=== PATIENT | male | born 1990 | race Caucasian/White ===

== ENCOUNTER 2016-11-27 13:48 | Emergency (ER) | payer SELFPAY ==
[2016-11-27] MEDS ORDERED: TRAMADOL HCL 50 MG TABLET PO ONE (15:09)
--- NOTE | 2016-11-27 15:13 | ER Document Report ---
ED Medical Screen (RME) - General Chief Complaint: Chest Pain Stated Complaint: CHEST PAIN Time Seen by Provider: 11/27/16 15:04 Mode of Arrival: Ambulatory Information source: Patient, ON LICENSE OF [facility] Records TRAVEL OUTSIDE OF THE [place] IN LAST 30 DAYS: No - HPI Onset: Other Onset/Duration: Gradual, Waxing and waning Severity: Mild Exacerbated by: Denies Relieved by: Denies Notes: 11/27/16 15:09 Patient is a healthy 26-year-old male who presents with a one-year history of intermittent left-sided chest pain. Patient has had no medical follow-up for this chest pain. Patient states today, the pain seemed worse. No PE risk factors. No fevers or chills. No recent trauma. Not short of breath. Patient has not taken any medication for his symptoms. - Related Data Allergies/Adverse Reactions: No Known Allergies Allergy (Verified 11/27/16 15:04) Past Medical History - General Information source: Patient, ON LICENSE OF [facility] Records - Social History Cigarette use (# per day): No Chew tobacco use (# tins/day): No Family history: None - Medical History Medical History: Negative Renal/ Medical History: Denies: Hx Peritoneal Dialysis Review of Systems - Review of Systems Cardiovascular: Chest pain -: Yes All other systems reviewed and negative Physical Exam - Vital signs Vitals: Temp Pulse Resp BP Pulse Ox 98.2 F 109 H 16 108/70 97 11/27/16 14:05 11/27/16 14:05 11/27/16 14:05 11/27/16 14:05 11/27/16 14:05 Interpretation: Normal - General General appearance: Appears well, Alert - HEENT Head: Normocephalic, Atraumatic Eyes: Normal Pupils: PERRL - Respiratory Respiratory status: No respiratory distress Chest status: Nontender. No: Pain on movement, Pain with cough Breath sounds: Normal Chest palpation: Normal - Cardiovascular Rhythm: Regular Heart sounds: Normal auscultation Murmur: No Normal capillary refill: Yes - Abdominal Inspection: Normal Distension: No distension Bowel sounds: Normal Tenderness: Nontender Organomegaly: No organomegaly - Back Back: Normal, Nontender - Extremities General upper extremity: Normal inspection, Nontender, Normal color, Normal ROM , Normal temperature General lower extremity: Normal inspection, Nontender, Normal color, Normal ROM , Normal temperature, Normal weight bearing. No: Brittany's sign - Neurological Neuro grossly intact: Yes Cognition: Normal Orientation: AAOx4 Drew Coma Scale Eye Opening: Spontaneous Drew Coma Scale Verbal: Oriented [place] Coma Scale Motor: Obeys Commands [place] Coma Scale Total: 15 Speech: Normal Motor strength normal: LUE, RUE, LLE, RLE Sensory: Normal - Psychological Associated symptoms: Normal affect, Normal mood - Skin Skin Temperature: Warm Skin Moisture: Dry Skin Color: Normal Course - Re-evaluation Re-evalutation: 11/27/16 15:11 Patient with a one-year history of intermittent chest pain symptoms. No primary care or cardiology follow-up. EKG is normal. Physical exam is unremarkable. Discussed need for primary care follow-up. Discussed return symptoms worsen problems. - Vital Signs Vital signs: Temp Pulse Resp BP Pulse Ox 98.2 F 109 H 16 108/70 97 11/27/16 14:05 11/27/16 14:05 11/27/16 14:05 11/27/16 14:05 11/27/16 14:05 - EKG Interpretation by Pr EKG shows normal: Sinus rhythm Rate: Tachycardia - 105 [place]/QRS: No: Right axis deviation, Left axis deviation Voltage: No: Increased voltage Additional EKG results interpreted by mo: 11/27/16 15:[address]-T wave changes. Doctor's Discharge - Discharge Clinical Impression: Chest pain Condition: Good Disposition: HOME, SELF-CARE Instructions: Chest Pain of Unclear Cause ([facility]) Additional Instructions: Follow-up with your primary care doctor and/or cardiology. Return to the emergency department if worse or for any other problems. Prescriptions: Tramadol HCl 50 mg PO QID PRN #20 tablet PRN Reason: Mild Pain
[2016-11-27 15:19] VITALS: BP 102/62
--- NOTE | 2016-11-27 19:10 | EKG REPORT ---
SEVERITY:- OTHERWISE NORMAL ECG - SINUS TACHYCARDIA : Confirmed by: Darryn Almazan MD 27-Nov-2016 19:09:46
== END 2016-11-27 15:22 | disposition home or self-care (01) ==
LOC: ER 13:48
DX: R07.9 Chest pain, unspecified (principal)
CPT/HCPCS: 93005; 93010; 99285

== ENCOUNTER 2017-01-24 19:47 | Emergency (ER) | payer SELFPAY ==
[2017-01-24] MEDS ORDERED: PROMETHAZINE HCL 25 MG TABLET PO ONE (20:30)
[2017-01-24] MEDS ORDERED: OXYCODONE-ACETAMINOPHEN 5-325 MG TABLET PO ONE (20:30)
[2017-01-24] MEDS ORDERED: LIDOCAINE 1% INJ-PF (10 MG/ML) 30 ML SDV INJ ONE (20:32)
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
[2017-01-24 22:12] VITALS: BP 123/64
== END 2017-01-24 22:12 | disposition home or self-care (01) ==
LOC: ER 19:47
PROC: 0HQFXZZ Repair Right Hand Skin, External Approach (ICD-10-PCS; principal; 2017-01-24)
DX: S61.411A Laceration without foreign body of right hand, initial encounter (principal); X99.1XXA Assault by knife, initial encounter; F17.200 Nicotine dependence, unspecified, uncomplicated
CPT/HCPCS: 99284

== ENCOUNTER 2017-05-19 14:46 | Emergency (ER) | payer SELFPAY ==
[2017-05-19] MEDS ORDERED: PROCHLORPERAZINE MALEATE 10 MG TABLET PO ONE (15:57)
[2017-05-19] MEDS ORDERED: DIPHENHYDRAMINE HCL 25 MG CAPSULE PO ONE (15:57)
[2017-05-19] MEDS ORDERED: TRAMADOL HCL 50 MG TABLET PO ONE (15:58)
--- NOTE | 2017-05-19 15:58 | ER Document Report ---
ED General - General Chief Complaint: Chest Pressure Stated Complaint: CHEST PAIN,HEADACHE Time Seen by Provider: 05/19/17 15:46 Mode of Arrival: Ambulatory Information source: Patient, Friend Notes: This 26-year-old male patient who probably suffers from untreated bipolar disorder, alcohol abuse and self-medication with alcohol. Comes emergency room complaining of several day history of headache, chest pain. He has had congested cough with some brown and black appearing sputum. He does smoke half pack a day and at this time which is much less than his baseline. He denies any EtOH since a democrat prior to , however he has an EtOH odor on his breath at this time. He reports pain in the chest when he takes deep breath and coughs. He also reports vomiting blood for the past 2 weeks. He states he has never been to [facility] [address], however review of records I think I saw where he had been referred there. The patient's girlfriend is present, she is . She is concerned about him having untreated bipolar disorder and would like him on medication. She also reports that he drinks regularly despite what he reported. She is concerned that bipolar disorder could be inherited by the child she is caring at this time. TRAVEL OUTSIDE OF THE [place] IN LAST 30 DAYS: No - Related Data Allergies/Adverse Reactions: No Known Allergies Allergy (Verified 05/19/17 14:47) Home Medications: Current Home Medications No Home Medications 05/19/17 [History] Past Medical History - General Information source: Patient, Friend - Social History Smoking Status: Current Every Day Smoker Cigarette use (# per day): Yes - 1 PPD Chew tobacco use (# tins/day): No Smoking Education Provided: No Frequency of alcohol use: Heavy Drug Abuse: None Lives with: Spouse/Significant other Family History: Reviewed & Not Pertinent Patient has suicidal ideation: No Patient has homicidal ideation: No - Past Medical History Cardiac Medical History: Reports: None EENT Medical History: Reports: None Neurological Medical History: Reports: None Endocrine Medical History: Reports: None Renal/ Medical History: Reports: None GI Medical History: Reports: None Skin Medical History: Reports None Psychiatric Medical History: Reports: Hx Anxiety Traumatic Medical History: Reports: None Infectious Medical History: Reports: None Past Surgical History: Reports: None - Immunizations Hx Diphtheria, Pertussis, Tetanus Vaccination: - UNKNOWN Review of Systems - Review of Systems Constitutional: No symptoms reported EENT: No symptoms reported Cardiovascular: See HPI, Chest pain Respiratory: Cough, Hurts to breathe, Hemoptysis, Sputum Gastrointestinal: Nausea Genitourinary: No symptoms reported Musculoskeletal: No symptoms reported Skin: No symptoms reported Hematologic/Lymphatic: No symptoms reported Neurological/Psychological: No symptoms reported Physical Exam - Vital signs Vitals: Temp Pulse Resp BP Pulse Ox 98.8 F 117 H 18 111/84 96 05/19/17 15:18 05/19/17 15:18 05/19/17 15:18 05/19/17 15:18 05/19/17 15:18 Interpretation: Tachycardic - General General appearance: Alert, Anxious In distress: None - HEENT Head: Normocephalic, Atraumatic Eyes: Normal Pupils: PERRL Neck: Normal - Respiratory Respiratory status: No respiratory distress Breath sounds: Productive cough, Rhonchi Chest palpation: Tender - Very tender to palpate the posterior thoracic muscles and ribs going around bilaterally. - Cardiovascular Rhythm: Regular, Tachycardia Heart sounds: Normal auscultation Murmur: No - Abdominal Inspection: Normal Distension: No distension Bowel sounds: Normal - Back Back: Tender - Extremities General upper extremity: Normal inspection General lower extremity: Normal inspection - Neurological Neuro grossly intact: Yes - Psychological Associated symptoms: Anxious, Depressed - Skin Skin Temperature: Warm Skin Moisture: Dry Skin Color: Normal Course - Re-evaluation Re-evalutation: 05/19/17 17:22 The patient was seen by psych to talk about medication management of his bipolar disorder. No history from the girlfriend is she has not been home in a couple days, she is afraid of him. He has become aggressive toward her. He changed his mind and at this time does not want any medication for his problems. His EtOH level came back at 261mg%. He is obviously a high functioning alcoholic. Given this latest information, and his girlfriend is concerned about her safety, IVC paperwork will be taken out and he will be served by [facility]. 05/19/17 18:26 The patient was placed on IVC paperwork and moved to the back to a private room. We will hoping to have [facility] serve the papers to avoid a dangerous confrontation with the patient. [facility] has never shown up with papers, they were called because the patient is becoming agitated. They responded that they will not be here for quite some time. Security is now standing by, he will be given IM Haldol and Ativan. He received Benadryl and Compazine earlier. - Vital Signs Vital signs: Temp Pulse Resp BP Pulse Ox 98.1 F 80 16 115/65 99 05/20/17 06:39 05/20/17 06:39 05/20/17 08:03 05/20/17 06:39 05/20/17 06:39 - Laboratory Result Diagrams: 05/19/17 16:19 05/19/17 16:19 Laboratory results interpreted by me: 05/19/17 05/19/17 05/20/17 16:19 16:19 07:30 WBC 13.9 H Hgb 17.5 H Hct 51.4 H Seg Neutrophils % 79.2 H Absolute Neutrophils 11.0 H Sodium 145.4 H Potassium 5.1 H Carbon Dioxide 18 L Anion Gap 22 H Calcium 10.6 H Alkaline Phosphatase 133 H Total Protein 8.4 H Albumin 5.3 H Urine Protein 30 H Urine Ketones 20 H Urine Urobilinogen 2.0 H - Diagnostic Test Radiology reviewed: Image reviewed, Reports reviewed - Chest x-ray is unremarkable - EKG Interpretation by Me EKG shows normal: Sinus rhythm, [place], Intervals, QRS Complexes, ST-T Waves Rate: Tachycardia - 105 Discharge - Discharge Clinical Impression: Chronic alcohol abuse, Bronchitis, Pain, chest wall Bipolar disorder Qualifiers: Active/Remission status: currently active Current bipolar episode type: depressed Current episode severity: moderate Qualified Code(s): F31.32 - Bipolar disorder, current episode depressed, moderate Acute alcohol intoxication Qualifiers: Complication of substance-induced condition: uncomplicated Qualified Code(s): F10.929 - Alcohol use, unspecified with intoxication, unspecified Headache Qualifiers: Headache type: unspecified Headache chronicity pattern: unspecified pattern Intractability: not intractable Qualified Code(s): R51 - Headache Condition: Stable Disposition: PSYCH HOSP/UNIT
[2017-05-19 16:31] LABS: ABSOLUTE BASOPHILS # (AUTO) 0.2 10^3/uL (0.0-0.2); ABSOLUTE LYMPHOCYTES (AUTO) 2.2 10^3/uL (0.5-4.7); ABSOLUTE MONOCYTES (AUTO) 0.5 10^3/uL (0.1-1.4); BASOPHILS % (AUTO) 1.1 % (0-2); EOSINOPHILS % (AUTO) 0.1 % (0-6); HEMATOCRIT 51.4 % (37.9-51.0); HEMOGLOBIN 17.5 g/dL (13.5-17.0); LYMPHOCYTES % (AUTO) 16.1 % (13-45); MEAN CORPUSCULAR HEMOGLOBIN 31.6 pg (27.0-33.4); MEAN CORPUSCULAR VOLUME 93 fl (80-97); MONOCYTES % (AUTO) 3.5 % (3-13); PLATELET COUNT 426 10^3/uL (150-450); RED BLOOD COUNT 5.52 10^6/uL (4.35-5.55); RED CELL DISTRIBUTION WIDTH 13.3 % (11.5-14.0); SEGMENTED NEUTROPHILS % (AUTO) 79.2 % (42-78); TOTAL CELLS COUNTED % (AUTO) 100 %; WHITE BLOOD COUNT 13.9 10^3/uL (4.0-10.5)
[2017-05-19 16:38] LABS: INTERNATIONAL RATION (INR) 0.94; PROTHROMBIN TIME 13.3 SEC (11.4-15.4)
[2017-05-19 16:48] LABS: ALANINE AMINOTRANSFERASE 50 U/L (21-72); ALBUMIN 5.3 g/dL (3.5-5.0); ALCOHOL 261 mg/dL (NONE DETECTED); ALKALINE PHOSPHATASE 133 U/L (38-126); ASPARTATE AMINO TRANSFERASE 33 U/L (17-59); BILIRUBIN,DIRECT 0.3 mg/dL (0.0-0.4); BILIRUBIN,TOTAL 1.3 mg/dL (0.2-1.3); BLOOD UREA NITROGEN 18 mg/dL (7-20); CALCIUM 10.6 mg/dL (8.4-10.2); CARBON DIOXIDE 18 mmol/L (22-30); CHLORIDE 105 mmol/L (98-107); GLUCOSE 75 mg/dL (75-110); POTASSIUM 5.1 mmol/L (3.6-5.0); SODIUM 145.4 mmol/L (137-145); TOTAL PROTEIN 8.4 g/dL (6.3-8.2)
[2017-05-19 16:58] LABS: ANION GAP 22 (5-19)
--- NOTE | 2017-05-19 17:22 | RADIOLOGY REPORT (SQ) ---
EXAM DESCRIPTION: CHEST PA/LAT COMPLETED DATE/TIME: 05/19/2017 4:39 pm REASON FOR STUDY: Congested cough COMPARISON: None. EXAM PARAMETERS: NUMBER OF VIEWS: two views TECHNIQUE: Digital Frontal and Lateral radiographic views of the chest acquired. RADIATION DOSE: NA LIMITATIONS: none FINDINGS: LUNGS AND PLEURA: No opacities, masses or pneumothorax. No pleural effusion. MEDIASTINUM AND HILAR STRUCTURES: No masses or contour abnormalities. HEART AND VASCULAR STRUCTURES: Heart normal size. No evidence for failure. BONES: No acute findings. HARDWARE: None in the chest. OTHER: No other significant finding. IMPRESSION: NO SIGNIFICANT RADIOGRAPHIC FINDING IN THE CHEST. TECHNICAL DOCUMENTATION: JOB ID: [id number] [employer]- All Rights Reserved
[2017-05-19] MEDS ORDERED: HALOPERIDOL LACTATE INJ 5 MG/1 ML VIAL IM ONE (18:25)
[2017-05-19] MEDS ORDERED: LORAZEPAM INJ 2 MG/1 ML VIAL IM ONE (18:26)
--- NOTE | 2017-05-19 18:45 | ER Document Report ---
ED General - General Chief Complaint: Chest Pressure Stated Complaint: CHEST PAIN,HEADACHE Time Seen by Provider: 05/19/17 15:46 Mode of Arrival: Ambulatory Information source: Patient TRAVEL OUTSIDE OF THE [place] IN LAST 30 DAYS: No - HPI Onset: Other - LONG-STANDING, DAILY Onset/Duration: Gradual, Waxing and waning Quality of pain: Cramping Severity: Moderate Associated symptoms: Nausea, Vomiting, Other - R. ARM & SHOULDER PAIN. denies: Shortness of breath Exacerbated by: Deep breathing Relieved by: Denies Similar symptoms previously: Yes - INTERMITTENT, MUCH WORSE LAST 2 WKS Recently seen / treated by doctor: No - Related Data Allergies/Adverse Reactions: No Known Allergies Allergy (Verified 05/19/17 14:47) Home Medications: Current Home Medications No Home Medications 05/19/17 [History] Past Medical History - General Information source: Patient, Friend Cannot obtain history due to: Uncooperative - Social History Smoking Status: Current Every Day Smoker Cigarette use (# per day): Yes - 1 PPD Chew tobacco use (# tins/day): No Frequency of alcohol use: Heavy Drug Abuse: None Lives with: Spouse/Significant other Family History: Reviewed & Not Pertinent Patient has suicidal ideation: No Patient has homicidal ideation: No - Past Medical History Cardiac Medical History: Reports: None Pulmonary Medical History: Reports: None Denies: Hx Asthma EENT Medical History: Reports: None Neurological Medical History: Reports: None Endocrine Medical History: Reports: None Renal/ Medical History: Reports: None. Denies: Hx Peritoneal Dialysis GI Medical History: Reports: None Musculoskeltal Medical History: Reports None Skin Medical History: Reports None Psychiatric Medical History: Reports: Hx Anxiety Traumatic Medical History: Reports: None Infectious Medical History: Reports: None Past Surgical History: Reports: None - Immunizations Hx Diphtheria, Pertussis, Tetanus Vaccination: - UNKNOWN Review of Systems - Review of Systems Constitutional: No symptoms reported. denies: Chills, Fever EENT: No symptoms reported Cardiovascular: See HPI Respiratory: No symptoms reported Gastrointestinal: No symptoms reported, Vomiting, Blood streaked bowels, Blood in vomit Genitourinary: No symptoms reported Musculoskeletal: No symptoms reported Skin: No symptoms reported Neurological/Psychological: Headaches Physical Exam - Vital signs Vitals: Temp Pulse Resp BP Pulse Ox 98.8 F 117 H 18 111/84 96 05/19/17 15:18 05/19/17 15:18 05/19/17 15:18 05/19/17 15:18 05/19/17 15:18 Interpretation: Tachycardic. No: Hypotensive, Hypertensive, Tachypneic - General General appearance: Other - AGITATED, ANGRY In distress: None - HEENT Head: Normocephalic Eyes: Normal Conjunctiva: Normal Ears: Normal Nasal: Normal Mouth/Lips: Normal Mucous membranes: Normal Pharynx: Erythema - GENERALIZED Neck: Normal - Respiratory Respiratory status: No respiratory distress Breath sounds: Normal - Cardiovascular Rhythm: Regular Heart sounds: Normal auscultation - Abdominal Inspection: Normal Distension: No distension Bowel sounds: Normal - Back Back: Normal - Extremities General upper extremity: Normal inspection, Tender - R. DELTOID & TRICEPS AREA General lower extremity: Normal inspection - Neurological Neuro grossly intact: Yes Cognition: Normal Orientation: AAOx4 - Psychological Associated symptoms: Aggressive, Agitated, Angry - Skin Skin Temperature: Warm Skin Moisture: Dry Skin Color: Normal Skin Turgor: Elastic Course - Vital Signs Vital signs: Temp Pulse Resp BP Pulse Ox 98.8 F 117 H 18 111/84 96 05/19/17 15:18 05/19/17 15:18 05/19/17 15:18 05/19/17 15:18 05/19/17 15:18 - Laboratory Result Diagrams: 05/19/17 16:19 05/19/17 16:19 Laboratory results interpreted by me: 05/19/17 05/19/17 16:19 16:19 WBC 13.9 H Hgb 17.5 H Hct 51.4 H Seg Neutrophils % 79.2 H Absolute Neutrophils 11.0 H Sodium 145.4 H Potassium 5.1 H Carbon Dioxide 18 L Anion Gap 22 H Calcium 10.6 H Alkaline Phosphatase 133 H Total Protein 8.4 H Albumin 5.3 H Discharge - Discharge Clinical Impression: Chronic alcohol abuse, Bronchitis, Pain, chest wall Bipolar disorder Qualifiers: Active/Remission status: currently active Current bipolar episode type: depressed Current episode severity: moderate Qualified Code(s): F31.32 - Bipolar disorder, current episode depressed, moderate Acute alcohol intoxication Qualifiers: Complication of substance-induced condition: uncomplicated Qualified Code(s): F10.929 - Alcohol use, unspecified with intoxication, unspecified Headache Qualifiers: Headache type: unspecified Headache chronicity pattern: unspecified pattern Intractability: not intractable Qualified Code(s): R51 - Headache Condition: Stable Disposition: PSYCH HOSP/UNIT
[2017-05-19] MEDS ORDERED: LORAZEPAM 1 MG TABLET PO ONE (18:47)
[2017-05-19] MEDS ORDERED: HALOPERIDOL 5 MG TABLET PO ONE (18:47)
[2017-05-19] MEDS ORDERED: NICOTINE 21 MG/24 HR PATCH.TD24 TD ONE (18:56)
--- NOTE | 2017-05-19 21:51 | PSYCHOLOGICAL NOTE ---
Psych Note - Psych Note Psych Note: Reason for consult: Suicidal Ideation Consents given: Girlfriend, with patient Patient presented at Emergency Department with chest pains. Patient's girlfriend was at side, this provider obtained verbal consent for girlfriend to be present before interview. Patient gave verbal consent to involve his girlfriend in his treatment planning. Patient stated he had not eaten in three days and had not had any liquid in one day due to being sick. Patient was accompanied by his girlfriend. Patient's girlfriend agreed he had not been eating but disagreed with him not drinking. Patient denied consuming alcohol within the last 24 hours even though this provider could smell alcohol emanating from the patient's skin and breath. Patient's girlfriend stated he had been drinking previous to the trip to the Emergency Department. Patient stated he just wanted to go home and he didn't need help for anything except his chest pains. This provider enquired about suicidal statements that were indicated in the pre-screening information. The patient's girlfriend stated he had made self harming statements about killing himself three days prior but she had further concerns about the patient's mood lability and aggressive behaviors. Patient's girlfriend sated the patient has "blow ups"and outbursts. Patient's girlfriend is 29 weeks and stated she fears for her own safety as well as that of her unborn child because of the patients aggression. Patient's girlfriend described the aggression as throwing projectiles around and at her as well as verbally aggressive behaviors. Patient's girlfriend stated she has not been staying in their shared home for the last two days due to her concern for her own safety. Patient denied suicidal ideation, intent or plan. Patient stated he has multiple arrests, including two DUIs, one for assault on a female and one for obtaining property through false pretenses. 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 Patient kept asking why this provider was asking him personal questions. Patient was adamant he wasn't a danger to himself. Patient stated he wasn't going to kill anyone. Patient became increasingly agitated throughout the interview. Patient's girlfriend continued to express fear of the patient and his unpredictable moods. Patient denied any psychiatric medications, treatment or inpatient hospitalizations. Patient denied any family history of mental health. Patient's girlfriend sated patient's mother was diagnosed with anxiety and depression. Patient denied any drug use. Patient stated he drinks daily and has since he was 14 years old. Patient stated he used to drink more than he does now, reporting he used to drink a half a gallon on liquor daily. Patient stated he only drinks a few shots of whiskey daily, Patient denied suicidal intent saying he has an 8 year old at home and his girlfriend is 29 weeks present. Patient stated he has too much to live for and had no intention of killing himself. Patient was alert and oriented to person, place, time and situation. Mood was guarded and irritable with congruent affect. Patient denied auditory/visual hallucinations. Patient was angry, irritable and hyper focused on leaving the hospital. Patient was observed ignoring his girlfriend's input and becoming visibly angry when she challenged his statements. Patient was observed not being able to stand without assistance from the wall, having red eyes and struggling to stay fully engaged in the conversation. Patient denied suicidal/ homicidal ideation, intent or plan. Patient did not appear to be responding to internal stimuli as evidenced by answering questions and making reasonable eye contact during questions. Thought processes were linear and organized. Conversational speech was slurred, tone and prosody were slow. Intellectual abilities were estimated within the average range. Insight, judgment and impulse control were poor as evidenced by not being able to be honest about last alcohol consumption, ignoring girlfriend's concerns for safety and unwillingness to engage with this provider. 1. 303.90 (F10.20) Alcohol Use Disorder, Moderate 2. 303.00 (F10.229) Alcohol Intoxication Plan/Impression: Patient is recommended for IVC. Patient meets [place] IVC criteria as evidenced by being a danger to self and others to include his poor judgment and lack of insight and impulse control. Patient is intoxicated with a blood alcohol serum of 261 upon initial interview. Patient's girlfriend's concerns for her own safety and that of her unborn child is concerning due to the patient's willingness to become verbally aggressive as well as throw projectiles at her. Consulted Dr. De La Torre in the care and management of this patient. ED physician in agreement with recommendation and disposition.
[2017-05-20 08:02] LABS: APPEARANCE,URINE SLIGHTLY-CLOUDY; BILIRUBIN,URINE NEGATIVE (NEGATIVE); COLOR,URINE YELLOW; GLUCOSE, URINE NEGATIVE (NEGATIVE); KETONES,URINE 20 mg/dL (NEGATIVE); LEUKOCYTE ESTERASE,URINE NEGATIVE (NEGATIVE); NITRITE,URINE NEGATIVE (NEGATIVE); PROTEIN,URINE 30 mg/dL (NEGATIVE); URINE SPECIFIC GRAVITY 1.033
[2017-05-20] MEDS ORDERED: ACETAMINOPHEN 325 MG TABLET PO ONE (08:12)
[2017-05-20 08:26] LABS: URINE AMPHETAMINES SCREEN NEGATIVE; URINE BARBITURATES SCREEN NEGATIVE; URINE BENZODIAZEPINES SCREEN NEGATIVE; URINE COCAINE SCREEN NEGATIVE; URINE MARIJUANA (THC) SCREEN NEGATIVE; URINE PHENCYCLIDINE SCREEN NEGATIVE
--- NOTE | 2017-05-20 09:23 | ER Document Report ---
Doctor's Note Notes: 05/20/17 09:21 Patient is alert and oriented 3 and in no acute distress. He currently denies any suicidal ideations. He exhibits no delusions or hallucinations. He appears competent and sober at this time. He presented yesterday with some somatic complaints in the setting of acute alcohol intoxication. His girlfriend was concerned about his bipolar disorder being untreated and she had concerns for his as well as her own safety. She had reported that she had been out of the house for the last several days because he was exhibiting erratic behavior in the setting of daily alcohol abuse. Patient's alcohol level was 267 and he was observed overnight. His labs demonstrated a mild elevation in his white blood count and an elevated anion gap suspected to be ketoacidosis from not eating. This morning, the patient did eat breakfast and he looks quite good. The psychology team has evaluated him and recommended the addition of BuSpar along with resources for outpatient counseling. 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 I have assured him that this is the purpose of outpatient so that he can both continue with his job and have counseling. The patient's girlfriend has been contacted by the psychology team and she will be picking the patient up. 05/20/17 09:47
--- NOTE | 2017-05-20 09:46 | PSYCHOLOGICAL NOTE ---
Psych Note - Psych Note Psych Note: Reason for consult: Suicidal Ideation (Re-evaluation) Consents given: Tung Mantillafriend [phone] Patient was re-evaluated this morning. Patient stated he was "doing better" this morning and he was feeling "sober." Patient stated he understood why his girlfriend was upset with him and was concerned about her safety. Patient stated he drank more than usual the night before last and was belligerent and generally frustrated. Patient stated he does not get angry easily or have difficulty controlling his anger when he is not drinking. Patient stated his presentation last night (irritable, angry, belligerent) is not typical when he drinks. Patient stated he drank more than usual and he does have anger issues when he drinks excessively. Patient agreed excessive drinking makes him feel "down." Patient denied he is an alcoholic and stated he drinks "less than he used to." Patient stated he used to get withdrawals from not drinking but does not experience that now. Patient stated, when he drinks, he usually starts around lunch time and drinks approximately a pint of liquor. Patient reported he drinks alone and does not typically go to bars to drink. Provider and patient discussed effects of chronic drinking on patient's heart. Patient stated he had not followed up with a dog sitter because he did not have insurance and did not qualify for Medicaid. Patient stated he understood that drinking alcohol would continue to damage his heart. Patient denied suicidal ideation, intent or plan. Patient stated he has his 8 year old child and his unborn child to think of and would never follow through with hurting himself because they needed him. Patient stated he was drunk and any suicidal statements he made were solely due to being intoxicated. Collateral contact was made with patient's girlfriend, Annalee ([phone]). 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 She stated she was not scared of the patient when he is not drinking. Patient's girlfriend asked about continuing services. Provider explained resources would be given to the patient before discharge and a recommendation to follow up would be included. Patient's girlfriend stated she would assist patient with following up outpatient for treatment and medication management. Patient was alert and oriented to person, place, time and situation. Mood was calm with congruent affect. Patient denied auditory/visual hallucinations. Patient denied suicidal/homicidal ideation, intent or plan. Patient did not appear to be responding to internal stimuli as evidenced by answering questions and making reasonable eye contact during questions. Thought processes were linear and organized. Conversational speech was within normal limits for rate, tone and prosody. Intellectual abilities were estimated within the average range. Insight, judgment and impulse control were fair although the patient continues to minimize his drinking and it's overall affects on his health and life. 1. 303.90 (F10.20) Alcohol Use Disorder, Moderate Plan/Impression: Recommended rescind IVC. Patient no longer meets [place] criteria. Patient denies suicidal ideation, intent or plan. Patient is calm and appropriate and no longer belligerent or angry. [facility] psychiatrist provided medication recommendation to assist with management of mental health concerns ( mood lability). Provided patient resources for affordable medical care. Provided patient with recovery resources, outpatient therapy referrals and medication management resources. Consulted Dr. De La Torre in the care and management of this patient. ED physician in agreement with recommendation and disposition.
[2017-05-20 09:55] LABS: URINE METHADONE SCREEN NEGATIVE
[2017-05-20 10:06] VITALS: BP 133/86
--- NOTE | 2017-05-21 09:28 | EKG REPORT ---
SEVERITY:- BORDERLINE ECG - SINUS TACHYCARDIA INFERIOR Q WAVES, PROBABLY NORMAL VARIATION : Confirmed by: Jassi Olivas 21-May-2017 09:27:53
== END 2017-05-20 10:52 | disposition home or self-care (01) ==
LOC: ER 14:46
DX: J40 Bronchitis, not specified as acute or chronic (principal); M79.601 Pain in right arm; F31.32 Bipolar disorder, current episode depressed, moderate; F10.929 Alcohol use, unspecified with intoxication, unspecified; R51 Headache; M25.511 Pain in right shoulder; R11.2 Nausea with vomiting, unspecified; R07.89 Other chest pain
CPT/HCPCS: 93005; 99285; 36415; 80307 ×2; 85025; 85610; 80053; 81001; 71020; 93010; S0183

== ENCOUNTER 2017-10-08 20:12 | Emergency (ER) | payer SELFPAY ==
[2017-10-08 20:20] VITALS: BP 127/87
[2017-10-08] MEDS ORDERED: IBUPROFEN 800 MG TABLET PO ONE (21:24)
[2017-10-08] MEDS ORDERED: SULFAMETHOXAZOLE/TRIMETHOPRIM 800-160 MG TABLET PO ONE (21:24)
[2017-10-08] MEDS ORDERED: CEPHALEXIN 500 MG CAPSULE PO ONE (21:25)
--- NOTE | 2017-10-08 21:30 | ER Document Report ---
ED General - General Chief Complaint: Insect Bite Stated Complaint: POSSIBLE BUG BITE LEFT LEG Time Seen by Provider: 10/08/17 21:09 Mode of Arrival: Ambulatory Information source: Patient TRAVEL OUTSIDE OF THE [place] IN LAST 30 DAYS: No - HPI Notes: Patient is a pleasant 27-year-old male no history of diabetes presents to the emergency department with report of possible insect bite in the left lower extremity that he noticed 3 days ago and tried to squeeze some fluid out of it and he scratched the area. The patient reports continued swelling to the area and the swelling worsened since yesterday. He denies any fever chills or chest pain or difficulty breathing or numbness or paresthesia. His last tetanus was 2 -1/2 years ago. The patient has no history of MRSA. Family history positive for diabetes in both parents. - Related Data Allergies/Adverse Reactions: No Known Allergies Allergy (Verified 05/19/17 14:47) Past Medical History - General Information source: Patient - Social History Smoking Status: Current Every Day Smoker Frequency of alcohol use: None Drug Abuse: None Lives with: Friend Family History: Reviewed & Not Pertinent Patient has suicidal ideation: No Patient has homicidal ideation: No Pulmonary Medical History: Denies: Hx Asthma Renal/ Medical History: Denies: Hx Peritoneal Dialysis Psychiatric Medical History: Reports: Hx Anxiety - Immunizations Hx Diphtheria, Pertussis, Tetanus Vaccination: - UNKNOWN Review of Systems - Review of Systems Notes: REVIEW OF SYSTEMS: CONSTITUTIONAL : Denies fever, chills, or sweats. EENT: Denies eye, ear, throat, or mouth pain or symptoms. Denies nasal or sinus congestion or discharge. Denies throat, tongue, or mouth swelling or difficulty swallowing. CARDIOVASCULAR: Denies chest pain. Denies palpitations or racing or irregular heart beat. Denies ankle edema. RESPIRATORY: Denies cough, cold, or chest congestion. Denies shortness of breath, difficulty breathing, or wheezing. GASTROINTESTINAL: Denies abdominal pain or distention. Denies nausea, vomiting , or diarrhea. Denies blood in vomitus, stools, or per rectum. Denies black, tarry stools. Denies constipation. GENITOURINARY: Denies difficulty urinating, painful urination, burning, frequency, blood in urine, or discharge. MUSCULOSKELETAL: Denies back or neck pain or stiffness. Denies joint pain or swelling. SKIN: Reports rash left lower extremity. HEMATOLOGIC : Denies easy bruising or bleeding. LYMPHATIC: Denies swollen, enlarged glands. NEUROLOGICAL: Denies confusion or altered mental status. Denies passing out or loss of consciousness. Denies dizziness or lightheadedness. Denies headache. Denies weakness or paralysis or loss of use of either side. Denies problems with gait or speech. Denies sensory loss, numbness, or tingling. Denies seizures. PSYCHIATRIC: Denies anxiety or stress. Denies depression, suicidal ideation, or homicidal ideation. ALL OTHER SYSTEMS REVIEWED AND NEGATIVE. Dictation was performed using [employer] voice recognition software Physical Exam - Vital signs Vitals: Temp Pulse Resp BP Pulse Ox 99.1 F 113 H 22 H 127/87 H 96 10/08/17 20:19 10/08/17 20:19 10/08/17 20:19 10/08/17 20:19 10/08/17 20:19 - Notes Notes: PHYSICAL EXAMINATION: GENERAL: Well-appearing, well-nourished and in no acute distress. HEAD: Atraumatic, normocephalic. EYES: Pupils equal round and reactive to light, extraocular movements intact, sclera anicteric, conjunctiva are normal. ENT: Nares patent, oropharynx clear without exudates. Moist mucous membranes. NECK: Normal range of motion, supple without lymphadenopathy LUNGS: Breath sounds clear to auscultation bilaterally and equal. No wheezes rales or rhonchi. HEART: Regular rate and rhythm without murmurs ABDOMEN: Soft, nontender, nondistended abdomen. No guarding, no rebound. No masses appreciated. Musculoskeletal: Normal range of motion, no pitting or edema. No cyanosis. NEUROLOGICAL: Cranial nerves grossly intact. Normal speech, normal gait. Normal sensory, motor exams PSYCH: Normal mood, normal affect. SKIN: Pain and swelling in area of cellulitis noted on the patient's left lower extremity anterior villanueva with an area of cellulitis that measures about 6 cm in diameter. There is minimal scab in the center portion of it, but there is no induration or evidence for abscess. Distally, the patient has good sensation and capillary refill and pulses. There is no proximal erythema or adenopathy. There is good range of motion in the knee and in the ankle. Course - Re-evaluation Re-evalutation: 10/08/17 21:33 Blood sugar was normal without evidence for DM. No evidence for DVT or neurovascular compromise or abscess or bony injury. - Vital Signs Vital signs: Temp Pulse Resp BP Pulse Ox 99.1 F 113 H 22 H 127/87 H 96 10/08/17 20:19 10/08/17 20:19 10/08/17 20:19 10/08/17 20:19 10/08/17 20:19 Discharge - Discharge Clinical Impression: Cellulitis Qualifiers: Site of cellulitis: extremity Site of cellulitis of extremity: lower extremity Laterality: left Qualified Code(s): L03.116 - Cellulitis of left lower limb Condition: Stable Disposition: HOME, SELF-CARE Instructions: Cellulitis ([facility]), Family Physicians / Practices Additional Instructions: Return to the emergency department in case of fever, worsening redness or swelling or red streaks. Elevate the leg as needed for pain and swelling. Prescriptions: Cephalexin Monohydrate [Keflex 500 mg Capsule] 500 mg PO Q6H 8 Days capsule Ibuprofen [Motrin 800 mg Tablet] 800 mg PO Q8H PRN #30 tab PRN Reason: Sulfamethoxazole/Trimethoprim [Bactrim Ds Tablet] 2 each PO BID #32 tablet
== END 2017-10-08 21:42 | disposition home or self-care (01) ==
LOC: ER 20:12
DX: L03.116 Cellulitis of left lower limb (principal); F17.200 Nicotine dependence, unspecified, uncomplicated
CPT/HCPCS: 82962; 99282